=== PATIENT | female | born 1990 | race African-American/Black ===

== ENCOUNTER 2017-04-22 20:09 | Emergency (ER) | payer BC, OTHER ==
[~2017-04-22] VITALS: Ht 157.5 cm; Wt 92.5 kg
[2017-04-22] MEDS ORDERED: NOHOMEMEDICATIONS (20:55)
[2017-04-22 21:14] LABS: URINE BILIRUBIN NEGATIVE (Negative); URINE BLOOD NEGATIVE (Negative); URINE COLOR YELLOW; URINE GLUCOSE-RANDOM* NEGATIVE (Negative); URINE KETONES NEGATIVE (Negative); URINE LEUKOCYTES-REFLEX NEGATIVE (Negative); URINE PROTEIN (DIPSTICK) NEGATIVE (Negative); URINE SPECIFIC GRAVITY 1.015 (1.005-1.035); URINE UROBILINOGEN 0.2 E.U./dl (0.2-1.0)
[2017-04-22 21:34] VITALS: BP 112/46
[2017-04-23 14:13] LABS: CHLAMYDIA TRACHOMATIS-PCR Negative (Negative); NEISSERIA GONORRHEA-PCR Negative (Negative)
== END 2017-04-22 21:36 | disposition home or self-care (01) ==
LOC: ER 20:09
PROVIDERS: Physician Assistant
DX: O46.92 Antepartum hemorrhage, unspecified, second trimester (principal); Z3A.20 20 weeks gestation of pregnancy